=== PATIENT | female | born 1970 | race Two or more races ===

== ENCOUNTER 2017-10-02 05:53 | Emergency (ER) | payer OTHER ==
[~2017-10-02] VITALS: Ht 157.5 cm; Wt 81.6 kg
[2017-10-02] MEDS ORDERED: AVIANE-28 TABL1 EACH PO (06:16)
[2017-10-02] MEDS ORDERED: PROFERRIN12 MG PO (06:17)
[2017-10-02] MEDS ORDERED: CIPRO100 MG PO (06:17)
== END 2017-10-02 11:16 | disposition home or self-care (01) ==
LOC: ER 05:53
DX: N93.8 Other specified abnormal uterine and vaginal bleeding (principal)

== ENCOUNTER 2017-12-08 14:07 | Inpatient (IN) | payer OTHER ==
[~2017-12-08] VITALS: Ht 157.5 cm; Wt 81.6 kg
[~2017-12-08 14:07] MED LIST: AVIANE-28 TABL1 EACH PO; CIPRO100 MG PO; PROFERRIN12 MG PO
[2017-12-08] MEDS ORDERED: PROFERRIN-FORT1 EACH PO (14:25)
[2017-12-08] MEDS ORDERED: SINGULAIR10 MG (14:26)
[2017-12-08] MEDS ORDERED: CRYSELLE-28 TA1 EACH (14:26)
[2017-12-08] MEDS ORDERED: FLOVENT DISKUS50 MCG (14:26)
== END 2017-12-12 10:26 | DRG 743 ==
LOC: ER 14:07 → OB/GYN 15:09 → SEC-K 15:09 → O/R 12-09 13:37 → OB/GYN 12-09 15:32
PROVIDERS: Obstetrics & Gynecology
PROC: 30233N1 Transfusion of Nonautologous Red Blood Cells into Peripheral Vein, Percutaneous Approach (ICD-10-PCS; 2017-12-08)
PROC: 0US20ZZ Reposition Bilateral Ovaries, Open Approach (ICD-10-PCS; 2017-12-09)
PROC: 0UT90ZZ Resection of Uterus, Open Approach (ICD-10-PCS; principal; 2017-12-09 13:30)
DX: D25.0 Submucous leiomyoma of uterus (principal); N93.8 Other specified abnormal uterine and vaginal bleeding; D51.0 Vitamin B12 deficiency anemia due to intrinsic factor deficiency; N84.0 Polyp of corpus uteri